=== PATIENT | male | born 1985 | race American Indian/Alaskan Native ===

== ENCOUNTER 2016-12-01 20:25 | Emergency (ER) | payer MEDICAID ==
[2016-12-01 21:16] LABS: Hematocrit 46.5 % (35.5-45.6); Hemoglobin 15.5 gm/dl (11.8-15.2); Mean Corpuscular HGB Conc 33 % (32-34); Mean Corpuscular Hemoglobin 28 pg (28-32); Mean Corpuscular Volume 85 fl (84-94); Platelet Count 270 K/mm3 (140-440); Red Blood Count 5.51 M/mm3 (3.65-5.03); Red Cell Distribution Width 14.3 % (13.2-15.2); White Blood Count 5.3 K/mm3 (4.5-11.0)
[2016-12-01 21:27] LABS: Anion Gap 19 mmol/L; BUN/Creatinine Ratio 13.33; Blood Urea Nitrogen 12 mg/dL (9-20); Calcium 9.1 mg/dL (8.4-10.2); Carbon Dioxide 20 mmol/L (22-30); Chloride 103.6 mmol/L (98-107); Glucose 86 mg/dL (75-100); Potassium 3.9 mmol/L (3.6-5.0); Sodium 139 mmol/L (137-145)
--- NOTE | 2016-12-01 21:49 | Cat Scan Report ---
FINAL REPORT PROCEDURE: CT HEAD/BRAIN WO CON TECHNIQUE: Computerized tomography of the head was performed without contrast material. HISTORY: HEADACHE COMPARISON: No prior studies are available for comparison. FINDINGS: Skull and scalp: Normal. Paranasal sinuses: Normal. Ventricles and subarachnoid spaces: Normal. Cerebrum: No evidence of hemorrhage, acute infarction or mass . Cerebellum and brainstem: No evidence of hemorrhage, acute infarction or mass. Vasculature: Normal. Comments: None. IMPRESSION: Normal Examination
[2016-12-01 22:16] LABS: Bilirubin,Urine NEG (Negative); Blood,Urine NEG (Negative); Ketones,Urine TR mg/dL (Negative); Leukocyte Esterase,Urine TR (Negative); Mucus,Urine FEW /HPF; Nitrite,Urine NEG (Negative); Protein,Urine <15 mg/dL mg/dL (Negative)
[2016-12-01 23:37] LABS: Magnesium 2.2 mg/dL (1.7-2.3)
[2016-12-02 03:19] LABS: Urine Drugs of Abuse Note Disclamer
[2016-12-02 03:23] VITALS: BP 122/74
--- NOTE | 2016-12-02 04:09 | Emergency Department Report ---
ED General Adult HPI - General Chief complaint: Syncope Stated complaint: SYNCOPAL EPISODE Time Seen by Provider: 12/02/16 02:58 Source: patient Mode of arrival: Ambulatory Limitations: No Limitations - History of Present Illness Initial comments: This is a 31-year-old male. He is previously unknown to me. He has a past medical history of seizure disorder. His neurologist is Dr. Damian Rodney Patient reports that he takes Keppra, 3 tablets twice daily. He is not certain what the dosage of the individual pills are. He reports that he is mostly compliant with this medication. He presents to the ER complaining of dizziness , lightheadedness, syncope versus seizure. Patient reports that he is currently working night shifts. He reports poor sleep hygiene. Today, he describes mild headache, which is not sudden or thunderclap in nature, and nonspecific dizziness. He describes the dizziness is intermittent, and has a sensation of lightheadedness. Patient reports that his family said that he had a seizure. He did not bite his tongue, and he did not have any fecal or urinary incontinence. He reports his family describes episode as a generalized tonic-clonic event. This happened at approximately 4 to 5:00 on the preceding day. -: Gradual Location: head Quality: aching Consistency: intermittent Improves with: none Worsens with: none Associated Symptoms: syncope - Related Data Allergies Allergy/AdvReac Type Severity Reaction Status Date / Time No Known Allergies Allergy Verified 12/01/16 20:37 ED Review of Systems ROS: Stated complaint: SYNCOPAL EPISODE Other details as noted in HPI Constitutional: malaise. denies: fever Eyes: denies: vision change ENT: denies: epistaxis Respiratory: denies: cough Cardiovascular: syncope Gastrointestinal: denies: vomiting Genitourinary: denies: dysuria Musculoskeletal: denies: back pain, arthralgia, myalgia Skin: denies: lesions Neurological: headache, weakness Psychiatric: anxiety ED Past Medical Hx - Past Medical History Previous Medical History?: Yes Hx Seizures: Yes - Surgical History Past Surgical History?: No - Social History Smoking Status: Never Smoker Substance Use Type: Alcohol ED Physical Exam - General Limitations: No Limitations General appearance: alert, in no apparent distress - Head Head exam: Present: atraumatic, normocephalic - Eye Eye exam: Present: normal appearance, PERRL, EOMI, other (visual acuity intact to finger counting, color perception, reading at a close distance). Absent: nystagmus - ENT ENT exam: Present: normal exam, normal orophraynx, mucous membranes moist, normal external ear exam - Neck Neck exam: Present: normal inspection, full ROM. Absent: tenderness, meningismus - Respiratory Respiratory exam: Present: normal lung sounds bilaterally. Absent: respiratory distress, wheezes, rales, rhonchi, stridor, chest wall tenderness, accessory muscle use, decreased breath sounds, prolonged expiratory - Cardiovascular Cardiovascular Exam: Present: regular rate, normal rhythm, normal heart sounds. Absent: systolic murmur, diastolic murmur, rubs, gallop - GI/Abdominal GI/Abdominal exam: Present: soft, normal bowel sounds. Absent: distended, tenderness, guarding, rebound, rigid, pulsatile mass, hernia - Rectal Rectal exam: Present: deferred - Extremities Exam Extremities exam: Present: normal inspection, full ROM, normal capillary refill. Absent: tenderness, pedal edema, joint swelling, calf tenderness - Back Exam Back exam: Present: normal inspection, full ROM. Absent: tenderness, CVA tenderness (R), CVA tenderness (L), muscle spasm, paraspinal tenderness, vertebral tenderness - Neurological Exam Neurological exam: Present: alert, oriented X3, normal gait (normal gait. Normal tandem gait. Negative Romberg examination. Normal [id number]. Negative pronator drift.), other (Extraocular movements intact. Tongue midline. No facial droop. Facial sensation intact to light touch in the V1, V2 , V3 distribution bilaterally. 5 and 5 strength in 4 extremities.. Sensation is intact to light touch in 4 extremities.). Absent: motor sensory deficit - Psychiatric Psychiatric exam: Present: normal affect, normal mood - Skin Skin exam: Present: warm, dry, intact, normal color. Absent: rash ED Course Vital Signs 12/01/16 12/02/16 12/02/16 20:37 02:15 02:31 Temperature 97.7 F Pulse Rate 66 63 56 L Respiratory 22 17 15 Rate Blood Pressure 118/79 102/54 O2 Sat by Pulse 99 100 Oximetry 12/02/16 12/02/16 12/02/16 03:01 03:11 03:28 Temperature Pulse Rate 54 L Respiratory 15 18 Rate Blood Pressure 94/52 122/74 O2 Sat by Pulse 100 99 100 Oximetry ED Medical Decision Making - Lab Data Result diagrams: 12/01/16 20:58 12/01/16 20:58 Vital Signs 12/01/16 12/02/16 12/02/16 20:37 02:15 02:31 Temperature 97.7 F Pulse Rate 66 63 56 L Respiratory 22 17 15 Rate Blood Pressure 118/79 102/54 O2 Sat by Pulse 99 100 Oximetry 12/02/16 12/02/16 12/02/16 03:01 03:11 03:28 Temperature Pulse Rate 54 L Respiratory 15 18 Rate Blood Pressure 94/52 122/74 O2 Sat by Pulse 100 99 100 Oximetry Lab Results 12/01/16 12/01/16 12/01/16 Range/Units 03:18 20:58 20:58 WBC 5.3 (4.5-11.0) K/mm3 RBC 5.51 H (3.65-5.03) M/mm3 Hgb 15.5 H (11.8-15.2) gm/dl Hct 46.5 H (35.5-45.6) % MCV 85 (84-94) fl MCH 28 (28-32) pg MCHC 33 (32-34) % RDW 14.3 (13.2-15.2) % Plt Count 270 (140-440) K/mm3 Lymph % (Auto) 36.7 H (13.4-35.0) % [place] % (Auto) 7.2 (0.0-7.3) % Eos % (Auto) 2.0 (0.0-4.3) % Baso % (Auto) 1.0 (0.0-1.8) % Lymph # 1.9 (1.2-5.4) K/mm3 [place] # 0.4 (0.0-0.8) K/mm3 Eos # 0.1 (0.0-0.4) K/mm3 Baso # 0.1 (0.0-0.1) K/mm3 Seg Neutrophils % 53.1 (40.0-70.0) % Seg Neutrophils # 2.8 (1.8-7.7) K/mm3 Sodium 139 (137-145) mmol/L Potassium 3.9 (3.6-5.0) mmol/L Chloride 103.6 (98-107) mmol/L Carbon Dioxide 20 L (22-30) mmol/L Anion Gap 19 mmol/L BUN 12 (9-20) mg/dL Creatinine 0.9 (0.8-1.5) mg/dL Estimated GFR > 60 ml/min BUN/Creatinine Ratio 13.33 % Glucose 86 (75-100) mg/dL Calcium 9.1 (8.4-10.2) mg/dL Magnesium (1.7-2.3) mg/dL Total Creatine Kinase (55-170) units/L TSH (0.270-4.200) mlU/mL Urine Color (Yellow) Urine Turbidity (Clear) Urine pH (5.0-7.0) Ur Specific [place] (1.003-1.030) Urine Protein (Negative) mg/dL Urine Glucose (UA) (Negative) mg/dL Urine Ketones (Negative) mg/dL Urine Blood (Negative) Urine Nitrite (Negative) Urine Bilirubin (Negative) Urine Urobilinogen (<2.0) mg/dL Ur Leukocyte Esterase (Negative) Urine WBC (Auto) (0.0-6.0) /HPF Urine RBC (Auto) (0.0-6.0) /HPF U Epithel Cells (Auto) (0-13.0) /HPF Urine Mucus /HPF Urine Opiates Screen Presumptive negative Urine Methadone Screen Presumptive negative Ur Barbiturates Screen Presumptive negative Ur Phencyclidine Scrn Presumptive negative Ur Amphetamines Screen Presumptive negative U Benzodiazepines Scrn Presumptive negative Urine Cocaine Screen Presumptive negative U Marijuana (THC) Screen Presumptive negative Drugs of Abuse Note Disclamer 12/01/16 12/01/16 12/01/16 Range/Units 21:44 23:09 23:09 WBC (4.5-11.0) K/mm3 RBC (3.65-5.03) M/mm3 Hgb (11.8-15.2) gm/dl Hct (35.5-45.6) % MCV (84-94) fl MCH (28-32) pg MCHC (32-34) % RDW (13.2-15.2) % Plt Count (140-440) K/mm3 Lymph % (Auto) (13.4-35.0) % [place] % (Auto) (0.0-7.3) % Eos % (Auto) (0.0-4.3) % Baso % (Auto) (0.0-1.8) % Lymph # (1.2-5.4) K/mm3 [place] # (0.0-0.8) K/mm3 Eos # (0.0-0.4) K/mm3 Baso # (0.0-0.1) K/mm3 Seg Neutrophils % (40.0-70.0) % Seg Neutrophils # (1.8-7.7) K/mm3 Sodium (137-145) mmol/L Potassium (3.6-5.0) mmol/L Chloride (98-107) mmol/L Carbon Dioxide (22-30) mmol/L Anion Gap mmol/L BUN (9-20) mg/dL Creatinine (0.8-1.5) mg/dL Estimated GFR ml/min BUN/Creatinine Ratio % Glucose (75-100) mg/dL Calcium (8.4-10.2) mg/dL Magnesium 2.20 (1.7-2.3) mg/dL Total Creatine Kinase 199 H (55-170) units/L TSH 0.463 (0.270-4.200) mlU/mL Urine Color Yellow (Yellow) Urine Turbidity Clear (Clear) Urine pH 7.0 (5.0-7.0) Ur Specific [place] 1.016 (1.003-1.030) Urine Protein <15 mg/dl (Negative) mg/dL Urine Glucose (UA) Neg (Negative) mg/dL Urine Ketones Tr (Negative) mg/dL Urine Blood Neg (Negative) Urine Nitrite Neg (Negative) Urine Bilirubin Neg (Negative) Urine Urobilinogen 2.0 (<2.0) mg/dL Ur Leukocyte Esterase Tr (Negative) Urine WBC (Auto) 13.0 H (0.0-6.0) /HPF Urine RBC (Auto) 4.0 (0.0-6.0) /HPF U Epithel Cells (Auto) 1.0 (0-13.0) /HPF Urine Mucus Few /HPF Urine Opiates Screen Urine Methadone Screen Ur Barbiturates Screen Ur Phencyclidine Scrn Ur Amphetamines Screen U Benzodiazepines Scrn Urine Cocaine Screen U Marijuana (THC) Screen Drugs of Abuse Note - EKG Data -: EKG Interpreted by Me EKG shows normal: sinus rhythm Rate: bradycardia - EKG Data When compared to previous EKG there are: previous EKG unavailable 12/02/16 04:08 sinus bradycardia, 59 bpm, normal intervals, normal axis, not morphologically consistent with STEMI, there is no prior for comparison - Radiology Data Radiology results: report reviewed, image reviewed Noncontrast CT scan of the brain is negative - Medical Decision Making Differential diagnosis: Breakthrough seizure, arrhythmia, orthostasis, structural cardiac disease, vagal events Assessment and plan: 31-year-old male with seizure versus syncope, nonspecific headache. Headache historically is not consistent with stroke or subarachnoid hemorrhage, the patient has a GCS of 15, with an NIH score of 0, and an ABCD 2 score of 0, no pulmonary embolus or DVT risk factors, low risk by well's criteria, and is perc negative. Patient observed 10 hours status post his original event. He did not have any other convulsive events. The importance of medication compliance was emphasized to the patient. He is chronically sober at this time, and he is instructed to follow-up with his outpatient neurologist to be cleared to return to drive a car. He is instructed to not operate motor vehicles for the next 6 months. He is further instructed that proper sleep hygiene may facilitate improvement of his symptoms. Critical care attestation.: If time is entered above; I have spent that time in minutes in the direct care of this critically ill patient, excluding procedure time. ED Disposition Clinical Impression: History of seizure, Dizzy Disposition: DC-01 TO HOME OR SELFCARE Is pt being admited?: No Does the pt Need Aspirin: No Condition: Stable Additional Instructions: Continue current outpatient medications. Follow up with your neurologist within the next week to 10 days. Follow up with any of the listed cork insulator within the next week to [address] a car or operate motor vehicles unless cleared by your neurologist, primary care doctor or cork insulator. He should specifically not drive her car operate motor vehicles for the next 6 months unless cleared as discussed. Return to the ER right away with new pain, worsened pain, migration of pain, fevers, chills, confusion, change in mental status, inability to tolerate liquid feeds. Referrals: THOMAS MICHAUD [Other] - 3-5 Days MAGNOLIA MORATAYA MD [Staff Physician] - 3-5 Days IAM RAJAN MD [Staff Physician] - 3-5 Days
== END 2016-12-02 04:50 | disposition home or self-care (01) ==
LOC: ED 20:25
DX: R42 Dizziness and giddiness (principal); R56.9 Unspecified convulsions
CPT/HCPCS: 36415; 70450; 80048; 80307; 81001; 82550; 83735; 84443; 85025; 93005; 93010

== ENCOUNTER 2017-02-15 09:00 | Emergency (ER) | payer SELFPAY ==
[2017-02-15 09:29] VITALS: BP 117/70
[2017-02-15] MEDS ORDERED: KEPPRA PO ONE (09:32)
--- NOTE | 2017-02-15 09:37 | Emergency Department Report ---
ED Seizure HPI - General Chief Complaint: Seizure Stated Complaint: SEIZURE Time Seen by Provider: 02/15/17 09:32 Source: patient, EMS (ems notes not available at time of chart dictation), RN notes reviewed Mode of arrival: Stretcher Limitations: Physical Limitation - History of Present Illness Initial Comments: This is a 31-year-old male who was previously unknown to this provider, has a history of seizure disorder, reports compliance with antiepileptic drug medication, brought to the hospital by EMS with possible breakthrough seizure. The patient denies headache, neck pain, chest pain, abdominal pain and shortness of breath, he denies irritative obstructive urinary symptoms, his symptoms have resolved, and he cannot describe exacerbating or relieving factors. The patient states he wants to go home. MD Complaint: possible seizure -: Sudden Witnessed:: Yes Seizure History: known seizure disorder Place: other Possible Precipitating Event: none Associated Symptoms: denies other symptoms - Related Data Previous Rx's Medication Instructions Recorded Last Taken Type levETIRAcetam [Keppra TAB] 1,500 mg PO BID #180 tablet 02/15/17 Unknown Rx Allergies Allergy/AdvReac Type Severity Reaction Status Date / Time No Known Allergies Allergy Verified 12/01/16 20:37 ED Review of Systems ROS: Stated complaint: SEIZURE Other details as noted in HPI Constitutional: denies: fever Eyes: denies: eye discharge ENT: denies: epistaxis Respiratory: denies: cough Cardiovascular: denies: chest pain, palpitations Gastrointestinal: denies: abdominal pain Genitourinary: denies: dysuria Musculoskeletal: denies: back pain Skin: denies: lesions Neurological: denies: weakness Psychiatric: denies: anxiety ED Past Medical Hx - Past Medical History Hx Seizures: Yes - Social History Smoking Status: Never Smoker Substance Use Type: None - Medications Home Medications: Home Medications Medication Instructions Recorded Confirmed Last Taken Type levETIRAcetam [Keppra TAB] 1,500 mg PO BID #180 tablet 02/15/17 Unknown Rx ED Physical Exam - General Limitations: No Limitations General appearance: alert, anxious - Head Head exam: Present: atraumatic, normocephalic - Eye Eye exam: Present: normal appearance, PERRL, EOMI. Absent: nystagmus - ENT ENT exam: Present: normal exam, normal orophraynx, mucous membranes moist, normal external ear exam - Neck Neck exam: Present: normal inspection, full ROM. Absent: tenderness, meningismus - Respiratory Respiratory exam: Present: normal lung sounds bilaterally. Absent: respiratory distress, wheezes, rales, rhonchi, stridor, chest wall tenderness, accessory muscle use, decreased breath sounds, prolonged expiratory - Cardiovascular Cardiovascular Exam: Present: normal rhythm, tachycardia, normal heart sounds. Absent: systolic murmur, diastolic murmur, rubs, gallop - GI/Abdominal GI/Abdominal exam: Present: soft, normal bowel sounds. Absent: distended, tenderness, guarding, rebound, rigid, pulsatile mass - Rectal Rectal exam: Present: deferred - Extremities Exam Extremities exam: Present: normal inspection, full ROM, normal capillary refill. Absent: pedal edema, joint swelling, calf tenderness - Back Exam Back exam: Present: normal inspection, full ROM. Absent: tenderness, CVA tenderness (R), CVA tenderness (L), muscle spasm, paraspinal tenderness, vertebral tenderness - Neurological Exam Neurological exam: Present: alert, oriented X3, normal gait, other (Extraocular movements intact. Tongue midline. No facial droop. Facial sensation intact to light touch in the V1, V2, V3 distribution bilaterally. 5 and 5 strength in 4 extremities.. Sensation is intact to light touch in 4 extremities.). Absent : motor sensory deficit - Psychiatric Psychiatric exam: Present: anxious - Skin Skin exam: Present: warm, dry, intact, normal color. Absent: rash ED Course Vital Signs 02/15/17 09:00 Temperature 98.2 F Pulse Rate 111 H Respiratory 18 Rate Blood Pressure 117/70 Blood Pressure 117/70 [Left] O2 Sat by Pulse 99 Oximetry ED Medical Decision Making - Lab Data Vital Signs 02/15/17 09:00 Temperature 98.2 F Pulse Rate 111 H Respiratory 18 Rate Blood Pressure 117/70 Blood Pressure 117/70 [Left] O2 Sat by Pulse 99 Oximetry - Medical Decision Making Differential diagnosis: Breakthrough seizure, convulsion, Assessment and plan: 31-year-old male with breakthrough seizure. He is afebrile , with reassuring vital signs, he reports compliance with his medications, clinically sober at this time, has a GCS of 15, with an night score of 0. He reports that he is taking his antiepileptic medication, Keppra, 1500 mg twice daily and not missing any doses. He reports that he has been seizure free for 4 months, and had a breakthrough seizure today, and a breakthrough seizure last week. He reports no head trauma, denies drug abuse. The patient is going to sign out AGAINST MEDICAL ADVICE at this time, the patient is alert and oriented 3, has a GCS of 15, is clinically sober, history from distracting injury, and is able to make decisions. The risks of leaving without a complete medical evaluation, including , disability, paralysis were relayed to the patient, and he was able to verbalize understanding in his own words. Patient is tolerating liquids at this time, he is given his oral dose of Keppra, I will give him a one-month refill of his medication, he is instructed to not drive for the next 6 months, and he is instructed to follow up with outpatient neurology as soon as possible. Return precautions are reviewed. This AMA conversation is witnessed by nurse Nikki Cid Critical care attestation.: If time is entered above; I have spent that time in minutes in the direct care of this critically ill patient, excluding procedure time. ED Disposition Clinical Impression: History of seizure Disposition: DC-07 LEFT AGAINST MED ADVICE Is pt being admited?: No Does the pt Need Aspirin: No Condition: Undetermined Instructions: Recurrent Seizures Adult (ED) Additional Instructions: As we discussed, you have left the hospital/emergency room AGAINST MEDICAL ADVICE. By leaving, you risked , disability, paralysis, permanent loss of quality of life. The ER is open 24 hours a day, 7 days a week. It never closes. Please return to the emergency room right away if and when you change your mind. If you decide not to return to the emergency room, please follow-up with the listed physician referrals as soon as possible. or follow up with Dr Underwood, your private neurologist as soon as possible Neu[facility] click address to view in in [facility] [address] [address] Prescriptions: levETIRAcetam [Keppra TAB] 1,500 mg PO BID #180 tablet Referrals: ROBI BEARD MD [Staff Physician] - 3-5 Days FABBY PERDUE MD [Staff Physician] - 3-5 Days JUAN LEYVA MD [Staff Physician] - 3-5 Days
== END 2017-02-15 09:49 | disposition left against medical advice (07) ==
LOC: ED 09:00
DX: R56.9 Unspecified convulsions (principal)
CPT/HCPCS: 99283

== ENCOUNTER 2018-03-04 16:30 | Emergency (ER) | payer MEDICAID ==
[2018-03-04 16:46] VITALS: BP 131/75
[2018-03-04] MEDS ORDERED: KEPPRA PO ONE ×2 (19:34)
--- NOTE | 2018-03-04 19:39 | Emergency Department Report ---
ED General Adult HPI - General Chief complaint: Recheck/Abnormal Lab/Rx Stated complaint: MEDICATION REFILL Time Seen by Provider: 03/04/18 19:34 Source: patient Mode of arrival: Ambulatory Limitations: No Limitations - History of Present Illness Initial comments: Patient is requesting a refill on his Keppra. He reports an scheduled appointment with the Neurologist in March. Complaint: medication refill Severity scale (0 -10): 0 Quality: other (none) Consistency: other (none) Improves with: medication Worsens with: none Associated Symptoms: denies other symptoms. denies: confusion, chest pain, cough, diaphoresis, fever/chills, headaches, loss of appetite, malaise, nausea/ vomiting, rash, seizure, shortness of breath, syncope, weakness Treatments Prior to Arrival: none - Related Data Previous Rx's Medication Instructions Recorded Last Taken Type levETIRAcetam [Keppra TAB] 1,500 mg PO BID #180 tablet 02/15/17 Unknown Rx Diclofenac Sodium [Voltaren] 100 gm TP Q6H #1 gel..gram. 01/18/18 Unknown Rx Hydrocortisone 1% [Hydrocortisone 1 applicatio TP TID #1 tube 01/18/18 Unknown Rx 1% CREAM] cephALEXin [Keflex] 500 mg PO Q12HR #20 cap 01/18/18 Unknown Rx levETIRAcetam [Keppra] 500 mg PO BID #60 tablet 03/04/18 Unknown Rx Allergies Allergy/AdvReac Type Severity Reaction Status Date / Time crab Allergy Hives Verified 03/04/18 16:43 ED Review of Systems ROS: Stated complaint: MEDICATION REFILL Other details as noted in HPI Constitutional: denies: chills, fever Eyes: denies: eye pain, eye discharge, vision change ENT: denies: ear pain, throat pain Respiratory: denies: cough, shortness of breath, SOB with exertion, SOB at rest , stridor, wheezing Cardiovascular: denies: chest pain, palpitations, dyspnea on exertion, orthopnea Endocrine: no symptoms reported Gastrointestinal: denies: abdominal pain, nausea, vomiting, diarrhea, constipation, hematemesis, melena Genitourinary: denies: urgency, dysuria Musculoskeletal: denies: back pain, joint swelling, arthralgia Skin: denies: rash, lesions Neurological: denies: headache, weakness, paresthesias Psychiatric: denies: anxiety, depression Hematological/Lymphatic: denies: easy bleeding, easy bruising ED Past Medical Hx - Past Medical History Hx Seizures: Yes - Surgical History Additional Surgical History: wisdom tooth, colonscopy - Social History Smoking Status: Never Smoker Substance Use Type: None - Medications Home Medications: Home Medications Medication Instructions Recorded Confirmed Last Taken Type levETIRAcetam [Keppra TAB] 1,500 mg PO BID #180 tablet 02/15/17 Unknown Rx Diclofenac Sodium [Voltaren] 100 gm TP Q6H #1 gel..gram. 01/18/18 Unknown Rx Hydrocortisone 1% [Hydrocortisone 1 applicatio TP TID #1 tube 01/18/18 Unknown Rx 1% CREAM] cephALEXin [Keflex] 500 mg PO Q12HR #20 cap 01/18/18 Unknown Rx levETIRAcetam [Keppra] 500 mg PO BID #60 tablet 03/04/18 Unknown Rx ED Physical Exam - General Limitations: No Limitations General appearance: alert, in no apparent distress - Head Head exam: Present: atraumatic, normocephalic - Eye Eye exam: Present: normal appearance, PERRL, EOMI - ENT ENT exam: Present: normal exam, mucous membranes moist - Neck Neck exam: Present: normal inspection, full ROM. Absent: tenderness, meningismus, lymphadenopathy, thyromegaly - Respiratory Respiratory exam: Present: normal lung sounds bilaterally. Absent: respiratory distress, wheezes, rales, rhonchi, stridor, chest wall tenderness, accessory muscle use, decreased breath sounds, prolonged expiratory - Cardiovascular Cardiovascular Exam: Present: regular rate, normal rhythm, normal heart sounds. Absent: systolic murmur, diastolic murmur, rubs, gallop - Extremities Exam Extremities exam: Present: normal inspection, full ROM, normal capillary refill. Absent: tenderness, pedal edema, joint swelling - Back Exam Back exam: Present: normal inspection, full ROM - Neurological Exam Neurological exam: Present: alert, oriented X3, CN II-XII intact, normal gait, reflexes normal. Absent: motor sensory deficit - Psychiatric Psychiatric exam: Present: normal affect, normal mood - Skin Skin exam: Present: warm, dry, intact, normal color. Absent: rash ED Course Vital Signs 03/04/18 16:44 Temperature 97.9 F Pulse Rate 78 Respiratory 16 Rate Blood Pressure 131/75 O2 Sat by Pulse 97 Oximetry - Reevaluation(s) Reevaluation #1: 03/04/18 19:44 anticonvulsant medication was ordered. ED Medical Decision Making - Lab Data Vital Signs 03/04/18 16:44 Temperature 97.9 F Pulse Rate 78 Respiratory 16 Rate Blood Pressure 131/75 O2 Sat by Pulse 97 Oximetry - Medical Decision Making 03/04/18 19:41 During the course of ED, anticonvulsant medication was ordered. Patient was sent home with a prescription for Keppra and advised to follow up with his scheduled appointment with the Neurologist in March. He verbalized understanding - Differential Diagnosis Medication Refill, Seizures Critical care attestation.: If time is entered above; I have spent that time in minutes in the direct care of this critically ill patient, excluding procedure time. ED Disposition Clinical Impression: Encounter for medication refill Disposition: -01 TO HOME OR SELFCARE Is pt being admited?: No Does the pt Need Aspirin: No Condition: Stable Instructions: Epilepsy (ED) Additional Instructions: Take medication as directed. Follow up with your Neurologist as scheduled in March Prescriptions: levETIRAcetam [Keppra] 500 mg PO BID #60 tablet Referrals: PRIMARY CARE, [Primary Care Provider] - 3-5 Days Time of Disposition: 19:35
== END 2018-03-04 19:50 | disposition home or self-care (01) ==
LOC: ED 16:30
DX: R56.9 Unspecified convulsions (principal); Z76.0 Encounter for issue of repeat prescription; Z91.013 Allergy to seafood
CPT/HCPCS: 99282

== ENCOUNTER 2020-08-23 11:29 | Emergency (ER) | payer MEDICAID, OTHER ==
--- NOTE | 2020-08-23 11:37 | Event Note ---
ED Screening Note Date of service: 08/23/20 Time: 11:36 ED Screening Note: 35-year-old male presents the ER with chief complaint of generalized body aches, malaise, cough that is productive and nausea and vomiting started yesterday. Patient denies any sick contacts, loss of taste or smell. This initial assessment/diagnostic orders/clinical plan/treatment(s) is/are subject to change based on patients health status, clinical progression and re- assessment by fellow clinical providers in the ED. Further treatment and workup at subsequent clinical providers discretion. Patient/guardian urged not to elope from the ED as their condition may be serious if not clinically assessed and managed. Initial orders include: CBC, CMP, chest x-ray
[2020-08-23 11:39] VITALS: BP 119/55
[2020-08-23 12:31] LABS: Basophils % (Auto) 0.7 % (0.0-1.8); Eosinophils % (Auto) 0.3 % (0.0-4.3); Hematocrit 44.3 % (35.5-45.6); Hemoglobin 14.6 gm/dl (11.8-15.2); Lymphocytes # (Auto) 1.4 K/mm3 (1.2-5.4); Lymphocytes % (Auto) 30.4 % (13.4-35.0); Mean Corpuscular HGB Conc 33 % (32-34); Mean Corpuscular Volume 88 fl (84-94); Monocytes # (Auto) 0.7 K/mm3 (0.0-0.8); Monocytes % (Auto) 14.9 % (0.0-7.3); Platelet Count 249 K/mm3 (140-440); Red Blood Count 5.06 M/mm3 (3.65-5.03); Red Cell Distribution Width 14.9 % (13.2-15.2)
[2020-08-23 12:46] LABS: Alanine Aminotransferase 40 units/L (7-56); Albumin 4.2 g/dL (3.9-5); BUN/Creatinine Ratio 8; Blood Urea Nitrogen 9 mg/dL (9-20); Calcium 8.6 mg/dL (8.4-10.2); Hemolysis Index 5
--- NOTE | 2020-08-23 13:07 | XRay Report ---
CHEST 2 VIEWS 1157 INDICATION / CLINICAL INFORMATION: productive cough, fever COMPARISON: None available. FINDINGS: SUPPORT DEVICES: None. HEART / MEDIASTINUM: No significant abnormality. LUNGS / PLEURA: Poor degree of inspiration is seen. Considering this, no obvious pulmonary infiltrate s are noted. No pneumothorax. ADDITIONAL FINDINGS: No significant additional findings. IMPRESSION: No significant acute abnormality Signer Name: Omar Downs MD Signed: 08/23/2020 1:03 PM Workstation Name: [id number]
--- NOTE | 2020-08-23 14:18 | Emergency Department Report ---
ED General Adult HPI - General Chief complaint: Upper Respiratory Infection Stated complaint: COUGH/EMESIS Source: patient Mode of arrival: Ambulatory Limitations: No Limitations - History of Present Illness Initial comments: 35-year-old male presents the ER with chief complaint of generalized body aches, malaise, cough that is productive and nausea and vomiting started yesterday. Patient denies any sick contacts, loss of taste or smell. He denies any associated fever, chills or night sweats, headache, dizziness, or vision, nausea, vomit, diarrhea, chest pain, shortness of breath, weakness or any other associated symptoms. - Related Data Previous Rx's Medication Instructions Recorded Last Taken Type Diclofenac Sodium [Voltaren] 100 gm TP Q6H #1 gel..gram. 01/18/18 Unknown Rx Hydrocortisone 1% [Hydrocortisone 1 applicatio TP TID #1 tube 01/18/18 Unknown Rx 1% CREAM] cephALEXin [Keflex] 500 mg PO Q12HR #20 cap 01/18/18 Unknown Rx levETIRAcetam [Keppra] 500 mg PO BID #180 tablet 03/04/18 Unknown Rx levETIRAcetam [Keppra TAB] 1,500 mg PO BID #180 tablet 03/14/18 Unknown Rx Promethazine Dm (Nf) [Phenergan DM 5 ml PO Q6H PRN #120 08/23/20 Unknown Rx 6.25-15 mg/5 ml] methylPREDNISolone [Medrol 4MG 4 mg PO ONCE #1 tab.ds.pk 08/23/20 Unknown Rx DOSEPAK (21 tabs)] Allergies Allergy/AdvReac Type Severity Reaction Status Date / Time crab Allergy Hives Verified 03/04/18 16:43 ED Review of Systems ROS: Stated complaint: COUGH/EMESIS Other details as noted in HPI Comment: All other systems reviewed and negative Constitutional: denies: chills, fever Eyes: denies: eye pain, eye discharge, vision change ENT: as per HPI, congestion. denies: ear pain, throat pain Respiratory: see HPI, cough. denies: shortness of breath, wheezing Cardiovascular: denies: chest pain, palpitations Endocrine: no symptoms reported Gastrointestinal: nausea, vomiting. denies: abdominal pain, diarrhea Genitourinary: denies: urgency, dysuria Musculoskeletal: denies: back pain, joint swelling, arthralgia Skin: denies: rash, lesions Neurological: denies: headache, weakness, paresthesias Psychiatric: denies: anxiety, depression Hematological/Lymphatic: denies: easy bleeding, easy bruising ED Past Medical Hx - Past Medical History Previous Medical History?: Yes Hx Seizures: Yes - Surgical History Past Surgical History?: Yes Additional Surgical History: wisdom tooth, colonscopy - Social History Smoking Status: Never Smoker Substance Use Type: None - Medications Home Medications: Home Medications Medication Instructions Recorded Confirmed Last Taken Type Diclofenac Sodium [Voltaren] 100 gm TP Q6H #1 gel..gram. 01/18/18 Unknown Rx Hydrocortisone 1% [Hydrocortisone 1 applicatio TP TID #1 tube 01/18/18 Unknown Rx 1% CREAM] cephALEXin [Keflex] 500 mg PO Q12HR #20 cap 01/18/18 Unknown Rx levETIRAcetam [Keppra] 500 mg PO BID #180 tablet 03/04/18 Unknown Rx levETIRAcetam [Keppra TAB] 1,500 mg PO BID #180 tablet 03/14/18 Unknown Rx Promethazine Dm (Nf) [Phenergan DM 5 ml PO Q6H PRN #120 08/23/20 Unknown Rx 6.25-15 mg/5 ml] methylPREDNISolone [Medrol 4MG 4 mg PO ONCE #1 tab.ds.pk 08/23/20 Unknown Rx DOSEPAK (21 tabs)] ED Physical Exam - General Limitations: No Limitations General appearance: alert, in no apparent distress - Head Head exam: Present: atraumatic, normocephalic - Eye Eye exam: Present: normal appearance, PERRL, EOMI Pupils: Present: normal accommodation - ENT ENT exam: Present: mucous membranes moist. Absent: normal exam, normal orophraynx - Neck Neck exam: Present: normal inspection, full ROM. Absent: tenderness, meningismus - Respiratory Respiratory exam: Present: normal lung sounds bilaterally. Absent: respiratory distress, wheezes, rales, rhonchi, stridor - Cardiovascular Cardiovascular Exam: Present: regular rate, normal rhythm, normal heart sounds. Absent: systolic murmur, diastolic murmur, rubs, gallop - GI/Abdominal GI/Abdominal exam: Present: soft, normal bowel sounds, other (Negative reverse point tenderness, negative Melton sign, no rebound or guarding.). Absent: distended, tenderness, guarding, rebound, rigid - Rectal Rectal exam: Present: deferred - Extremities Exam Extremities exam: Present: normal inspection, full ROM, normal capillary refill. Absent: tenderness, calf tenderness - Back Exam Back exam: Present: normal inspection, full ROM. Absent: tenderness, CVA tenderness (R), CVA tenderness (L), muscle spasm, paraspinal tenderness, vertebral tenderness - Neurological Exam Neurological exam: Present: alert, oriented X3, CN II-XII intact, normal gait - Psychiatric Psychiatric exam: Present: normal affect, normal mood - Skin Skin exam: Present: warm, dry, intact, normal color. Absent: rash ED Course Vital Signs 08/23/20 11:37 Temperature 99.5 F Pulse Rate 72 Respiratory 18 Rate Blood Pressure 119/55 O2 Sat by Pulse 98 Oximetry - Reevaluation(s) Reevaluation #1: 08/23/20 14:21 Patient nontoxic no acute distress. He is afebrile. Vital signs are stable. He is PERC negative and low risk by Wells criteria. Chest x-ray is negative for pneumonia, pneumothorax or other acute findings. Lab work was relatively normal other than a mild metabolic acidosis. Patient tolerating p.o. fluids well and recommended to increase his fluid hydration. We will send him home with cough and nausea medication as well as Medrol Dosepak. This is likely a viral source of his symptoms but did recommend that he follow-up and get tested for COVID-19 and remain socially distance but CDC guidelines. Patient verbalized understand the diagnosis, treatment plan and follow-up instructions all his questions were answered. 08/23/20 14:21 ED Medical Decision Making - Lab Data Result diagrams: 08/23/20 12:07 08/23/20 12:07 Lab Results 08/23/20 08/23/20 Range/Units 12:07 12:07 WBC 4.7 (4.5-11.0) K/mm3 RBC 5.06 H (3.65-5.03) M/mm3 Hgb 14.6 (11.8-15.2) gm/dl Hct 44.3 (35.5-45.6) % MCV 88 (84-94) fl MCH 29 (28-32) pg MCHC 33 (32-34) % RDW 14.9 (13.2-15.2) % Plt Count 249 (140-440) K/mm3 Lymph % (Auto) 30.4 (13.4-35.0) % Rusk % (Auto) 14.9 H (0.0-7.3) % Eos % (Auto) 0.3 (0.0-4.3) % Baso % (Auto) 0.7 (0.0-1.8) % Lymph # (Auto) 1.4 (1.2-5.4) K/mm3 Rusk # (Auto) 0.7 (0.0-0.8) K/mm3 Eos # (Auto) 0.0 (0.0-0.4) K/mm3 Baso # (Auto) 0.0 (0.0-0.1) K/mm3 Seg Neutrophils % 53.7 (40.0-70.0) % Seg Neutrophils # 2.5 (1.8-7.7) K/mm3 Sodium 139 (137-145) mmol/L Potassium 4.1 (3.6-5.0) mmol/L Chloride 105.3 (98-107) mmol/L Carbon Dioxide 21 L (22-30) mmol/L Anion Gap 17 mmol/L BUN 9 (9-20) mg/dL Creatinine 1.1 (0.8-1.3) mg/dL Estimated GFR > 60 ml/min BUN/Creatinine Ratio 8 % Glucose 133 H (75-100) mg/dL Calcium 8.6 (8.4-10.2) mg/dL Total Bilirubin 0.30 (0.1-1.2) mg/dL AST 30 (5-40) units/L ALT 40 (7-56) units/L Alkaline Phosphatase 78 (35-129) units/L Total Protein 7.5 (6.3-8.2) g/dL Albumin 4.2 (3.9-5) g/dL Albumin/Globulin Ratio 1.3 % - Radiology Data Radiology results: report reviewed, image reviewed Ordering Physician: CARY ROTH Date of Service: 08/23/20 Procedure(s): XR chest routine 2V Accession Number(s): [id number] cc: CARY ROTH Fluoro Time In Minutes: CHEST 2 VIEWS 1157 INDICATION / CLINICAL INFORMATION: productive cough, fever COMPARISON: None available. FINDINGS: SUPPORT DEVICES: None. HEART / MEDIASTINUM: No significant abnormality. LUNGS / PLEURA: Poor degree of inspiration is seen. Considering this, no obvious pulmonary infiltrates are noted. No pneumothorax. ADDITIONAL FINDINGS: No significant additional findings. IMPRESSION: No significant acute abnormality Signer Name: Omar Downs MD Signed: 08/23/2020 1:03 PM Workstation Name: [id number] Transcribed By: GJ Dictated By: Omar Downs MD Electronically Authenticated By: Omar Downs MD Signed Date/Time: 08/23/20 1303 - Differential Diagnosis URI, COVID-19, pneumonia Critical care attestation.: If time is entered above; I have spent that time in minutes in the direct care of this critically ill patient, excluding procedure time. ED Disposition Clinical Impression: Viral URI, Post-tussive vomiting Disposition: DC- TO HOME OR SELFCARE Is pt being admited?: No Condition: Stable Instructions: Viral Respiratory Infection, [id number], Nausea and Vomiting, Adult Prescriptions: methylPREDNISolone [Medrol 4MG DOSEPAK (21 tabs)] 4 mg PO ONCE #1 tab.ds.pk Promethazine Dm (Nf) [Phenergan DM 6.25-15 mg/5 ml] 5 ml PO Q6H PRN #120 PRN Reason: Cough Referrals: THOMAS MICHAUD [facility] [Primary Care Provider] - 3-5 Days Forms: Work/School Release Form(ED) Time of Disposition: 14:15
== END 2020-08-23 14:43 | disposition home or self-care (01) ==
LOC: ED 11:29
DX: J06.9 Acute upper respiratory infection, unspecified (principal); B97.89 Other viral agents as the cause of diseases classified elsewhere; R11.10 Vomiting, unspecified; R56.9 Unspecified convulsions; Z98.890 Other specified postprocedural states; Z79.899 Other long term (current) drug therapy; Z91.018 Allergy to other foods
CPT/HCPCS: 36415; 71046; 80053; 85025